=== PATIENT | male | born 1965 | race African-American/Black ===

== ENCOUNTER 2017-04-27 07:44 | Emergency (ER) | payer MEDICAID ==
[~2017-04-27] VITALS: Ht 175.3 cm; Wt 81.6 kg
[2017-04-27 07:51] VITALS: BP 181/117
[2017-04-27] MEDS ORDERED: KETOROLAC TROMETH 60MG/2ML VIAL IM ONE (08:15)
== END 2017-04-27 08:48 | disposition home or self-care (01) ==
LOC: ER 07:44
DX: M25.512 Pain in left shoulder (principal); F17.200 Nicotine dependence, unspecified, uncomplicated; I25.2 Old myocardial infarction; Z76.0 Encounter for issue of repeat prescription
CPT/HCPCS: 96372; 99283; J1885

== ENCOUNTER 2017-05-08 07:10 | Emergency (ER) | payer MEDICAID ==
[~2017-05-08] VITALS: Ht 175.3 cm; Wt 81.6 kg
[2017-05-08 08:51] VITALS: BP 127/89
[2017-05-08 09:21] LABS: Eosinophils # (auto) 0.4 uL; Lymphocytes # (auto) 1.6 uL; Mean Platelet Volume 8.8 fL (6.9-10.8)
[2017-05-08 09:24] LABS: Basophils # (auto) 0 uL; Basophils % (auto) 0.6 % (0.0-2.0); Eosinophils % (auto) 5.4 % (0.0-7.0); Hematocrit 43.7 % (41.0-53.0); Hemoglobin 14.1 g/dL (13.5-17.5); Lymphocytes % (auto) 21.8 % (10.0-50.0); Mean Corpuscular Hemoglobin 27.3 pg (28.0-32.0); Mean Corpuscular Hgb Conc. 32.4 g/dL (32.0-36.0); Mean Corpuscular Volume 84.4 fL (80.0-100.0); Monocytes # (auto) 0.7 uL; Neutrophils # (auto) 4.6 uL; Neutrophils % (auto) 62.2 % (37.0-80.0); Nucleated Red Blood Cells % 0.2 %; Platelet Count (auto) 187 10^3/uL (140-450); White Blood Cell 7.4 10^3/uL (4.4-10.8)
[2017-05-08 09:44] LABS: Albumin 3.6 g/dL (3.4-5.0); BUN/Creatinine Ratio 21.5; Bilirubin, Total 0.6 mg/dL (0.2-1.0); Calcium 8.7 mg/dL (8.5-10.1); Magnesium 2.3 mg/dL (1.6-2.6); Potassium 3.9 mmol/L (3.5-5.1)
[2017-05-08] MEDS ORDERED: LEVOFLOXACIN 500 MG TAB PO ONE (09:45)
[2017-05-08 09:55] LABS: Urine Bilirubin Negative (Negative); Urine Blood 1+ /uL (Negative); Urine Color Yellow (Yellow); Urine Glucose Normal (Normal); Urine Ketone Negative (Negative); Urine Nitrite POSITIVE (Negative); Urine RBC 12 /hpf (0 - 3); Urine Squamous Epithelial Cell FEW /hpf (<5); Urine Urobilinogen Normal (Negative); Urine WBC Clumps PRESENT /hpf (None Seen)
== END 2017-05-08 11:44 | disposition home or self-care (01) ==
LOC: ER 07:10
DX: N39.0 Urinary tract infection, site not specified (principal); I25.10 Atherosclerotic heart disease of native coronary artery without angina pectoris; G82.20 Paraplegia, unspecified; M19.012 Primary osteoarthritis, left shoulder; I25.2 Old myocardial infarction; N18.9 Chronic kidney disease, unspecified; I12.9 Hypertensive chronic kidney disease with stage 1 through stage 4 chronic kidney disease, or unspecified chronic kidney disease; F17.200 Nicotine dependence, unspecified, uncomplicated; Z95.5 Presence of coronary angioplasty implant and graft; Z93.3 Colostomy status; Z88.8 Allergy status to other drugs, medicaments and biological substances
CPT/HCPCS: 36415; 71020; 73030; 80053; 81001; 83735; 85025

== ENCOUNTER 2017-05-18 14:11 | Emergency (ER) | payer MEDICAID ==
[~2017-05-18] VITALS: Ht 175.3 cm; Wt 81.6 kg
[2017-05-18 15:09] VITALS: BP 159/96
== END 2017-05-18 16:40 | disposition home or self-care (01) ==
LOC: ER 14:30
DX: G89.29 Other chronic pain (principal); M25.512 Pain in left shoulder; I25.10 Atherosclerotic heart disease of native coronary artery without angina pectoris; I12.9 Hypertensive chronic kidney disease with stage 1 through stage 4 chronic kidney disease, or unspecified chronic kidney disease; N18.9 Chronic kidney disease, unspecified; I25.2 Old myocardial infarction; F17.200 Nicotine dependence, unspecified, uncomplicated; Z88.6 Allergy status to analgesic agent; Z76.0 Encounter for issue of repeat prescription